=== PATIENT | male | born 1970 | race African-American/Black ===

== ENCOUNTER 2023-03-10 20:22 | Emergency (ER) | payer BC, OTHER, SELFPAY ==
[2023-03-10 20:38] VITALS: BP 128/80; PULSE 81; RESP 20; TEMP 37.1; O2SAT 98; BMI 25.7
--- NOTE | 2023-03-10 20:59 | CT_ITS ---
The [address] [address] Patient Name: RODOLFO ENGLISH MRN: [id number] date: 1970 Sex: M Assigned Patient Location: ER Current Patient Location: ER Accession/Order Number: [id number] Exam Date: 03/10/2023 21:29 Report Date: 03/10/2023 22:17 At the request of: KADI GUTIÉRREZ Procedure: CT head/brain wo con EXAM: CT head/brain wo con HISTORY: Dizziness. TECHNIQUE: Axial CT scans through the head were obtained without IV contrast administration. Dose reduction techniques were achieved by using: automated exposure control and/or adjustment of mA and /or kV according to patient size and/or use of iterative reconstruction technique. COMPARISON: None. FINDINGS: The cerebral hemispheres have normal white and merritt matter and corticomedullary differentiation. To the limit of CT, the posterior fossa appears unremarkable. The ventricular system and cortical sulci are normal for the patient's age. No area of abnormal mass-effect or edema or intracranial hemorrhage. The visualized orbits show no abnormal mass. The visualized paranasal sinuses show an air-fluid level in the right maxillary sinus. Mastoid air cells are clear. CT/CT head/brain wo con IMPRESSION: No acute intracranial process. An air-fluid level in the right maxillary sinus. In a proper clinical presentation, it may represent acute sinusitis. Electronically authenticated by: KATLYN TAMAYO Date: 03/10/2023 22:17
--- NOTE | 2023-03-10 20:59 | CT_ITS ---
The [address] [address] Patient Name: RODOLFO ENGLISH MRN: [id number] date: 1970 Sex: M Assigned Patient Location: ER Current Patient Location: ED.MAIN Accession/Order Number: [id number] Exam Date: 03/10/2023 21:29 Report Date: 03/10/2023 22:15 At the request of: KADI GUTIÉRREZ Procedure: CT abdomen pelvis wo con CT ABDOMEN/PELVIS WITHOUT IV CONTRAST. INDICATION: pain right flank COMPARISON: There are no other studies available for comparison. TECHNIQUE: Contiguous axial images were obtained from the lung bases to the pelvic floor without intravenous or oral contrast. Coronal and sagittal reformations are provided. FINDINGS: Somewhat limited evaluation due to motion artifact. LOWER LUNGS: Clear. LIVER/BILIARY TREE: No discrete lesion. No intrahepatic ductal dilatation. GALLBLADDER: No significant gallbladder wall thickening. No radiopaque stone. CBD: Normal CBD. SPLEEN: Normal in size. PANCREAS: No appreciable peripancreatic fluid. No pancreatic ductal dilatation. There are calcifications in the pancreatic tail.. ADRENALS: Normal. KIDNEYS: No hydronephrosis. No radiopaque calculus. STOMACH AND BOWEL: Stomach is unremarkable. No dilated bowel loops. No bowel wall thickening. Colonic diverticulosis. APPENDIX: Not well-visualized. PERITONEAL CAVITY: No fluid. No fat stranding. ABDOMINAL WALL: No subcutaneous stranding. No subcutaneous fluid collection. LYMPH NODES: No mesenteric or retroperitoneal lymphadenopathy by CT criteria. ABDOMINAL AORTA: No aneurysm. PELVIS: No acute abnormality. MUSCULOSKELETAL: No acute osseous abnormality. CT/CT abdomen pelvis wo con IMPRESSION: 1. No acute abnormality in the abdomen or pelvis. No obstructive uropathy. No nephrolithiasis. 2. Findings are suggestive of chronic pancreatitis. No evidence of acute pancreatitis. Correlate with serum lipase levels. Electronically authenticated by: KENTRELL DELANEY Date: 03/10/2023 22:15
--- NOTE | 2023-03-10 21:01 | ECG_ITS ---
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
[2023-03-10] MEDS: 0.9 % SODIUM CHLORIDE 1,000 ML 1000 ML IV (21:17)
[2023-03-10] MEDS: ONDANSETRON PF 4 MG/2 ML VIAL IV (21:17)
[2023-03-10 21:25] LABS: Basophils Absolute Auto 0.1 10^3/uL (0.0-0.1); Basophils Percent Auto 0.7 % (0.2-2.0); Eosinophils Absolute Auto 0.2 10^3/uL (0.0-0.7); Eosinophils Percent Auto 2.1 % (0.9-7.0); Hematocrit 43.2 % (42.0-54.0); Hemoglobin 14.2 g/dL (14.0-18.0); Immature Granulocytes Abs Auto 0.03 10^3/uL (0.00-0.03); Immature Granulocytes Pct Auto 0.4 % (0.0-0.5); Lymphocytes Absolute Auto 3.4 10^3/uL (1.2-3.8); Lymphocytes Percent Auto 46.1 % (20.5-60.0); Mean Corpuscular HGB Conc 32.9 g/dL (29.9-35.2); Mean Corpuscular Hemoglobin 25.7 pg (25.9-34.0); Mean Corpuscular Volume 78.1 fL (80.0-94.0); Monocytes Absolute Auto 0.9 10^3/uL (0.3-0.8); Monocytes Percent Auto 12.7 % (1.7-12.0); Neutrophils Absolute Auto 2.8 10^3/uL (1.4-6.5); Platelet Count 338 10^3/uL (150-450); Red Blood Count 5.53 10^6/uL (4.70-6.10); Red Cell Distribution Width 15.7 % (11.0-15.0); White Blood Count 7.3 10^3/uL (4.0-11.0)
[2023-03-10 21:26] LABS: Bilirubin Urine NEGATIVE (NEGATIVE); Blood Urine NEGATIVE (NEGATIVE); Clarity Urine CLEAR (CLEAR); Color Urine LT. YELLOW (YELLOW); Glucose Urine UA >=1000 mg/dL (NEGATIVE); Ketones Urine TRACE mg/dL (NEGATIVE); Leukocyte Esterase Urine NEGATIVE (NEGATIVE); Nitrite Urine NEGATIVE (NEGATIVE); Protein Urine NEGATIVE (NEG/TRACE); RBC Urine 0-2 #/HPF (0-2); Specific Gravity Urine 1.025 (1.005-1.025); Urobilinogen Urine 0.2 EU/dL (0.2-1.0); WBC Urine NONE SEEN #/HPF (NONE SEEN); pH Urine 5.5 (5.0-9.0)
[2023-03-10 21:27] LABS: Bacteria Urine NONE SEEN #/HPF (NONE SEEN); Cast Seen? NONE SEEN #/LPF (NONE SEEN); Crystals Seen? None Seen #/HPF (None Seen); Mucus Urine NONE SEEN (NONE SEEN); Squamous Epithelial Cell Urine RARE #/LPF (NONE/RARE); Urine Culture Indicated NO
--- NOTE | 2023-03-10 21:32 | ED.GENADUL1 ---
Documented by User: Magnolia Gutiérrez 03/10/23 21:42 HPI - General Adult General Chief complaint: Dizziness Stated complaint: Altered Mental Status Time Seen by Provider: 03/10/23 20:58 Source: patient Mode of arrival: ambulance Limitations: no limitations History of Present Illness HPI narrative: 52-year-old male Presents to the emergency room with a chief complaint of dizziness and right flank pain. Patient was at work and began having right flank pain with dizziness. He denies a known history of kidney stones. Patient was brought to emergency room by squad for the symptoms. Dizziness has subsided but he states he still feels somewhat nauseated and has right flank pain. Patient is alert and oriented. Vital signs are stable he is not currently febrile. He denies taking any medications other than his prescribed medications prior to arrival today. he states she's type II diabetic. Related Data Home Medications Medication Instructions Recorded Confirmed benztropine 1 mg tablet mg 03/10/23 empagliflozin 25 mg tablet mg 03/10/23 (Jardiance) escitalopram oxalate 20 mg tablet mg 03/10/23 metformin 1,000 mg tablet mg 03/10/23 prazosin 2 mg capsule mg 03/10/23 quetiapine 200 mg tablet mg 03/10/23 Previous Rx's Medication Instructions Recorded nabumetone 750 mg tablet 750 mg PO BID PRN flank pain #20 03/10/23 tabs Allergies Allergy/AdvReac Type Severity Reaction Status Date / Time No Known Drug Allergies Allergy Verified 03/10/23 20:38 Review of Systems ROS Narrative All Systems are negative except as noted/marked.All systems reviewed and otherwise negative PFSH PFSH Social History Smoking status: Heavy tobacco smoker Exam Narrative Exam Narrative: Nurses note and vital signs reviewed and patient is not hypoxic. General: The patient appears well and in no apparent distress. Patient is resting comfortably on cart. Skin: Warm, dry, no pallor noted. There is no rash noted. Head: Normocephalic, atraumatic Eye:No nystagmus, Normal conjunctiva, no drainage, EOMI. PERRL Ears, Nose, Mouth, and Throat: oral mucosa is moist. Nares patent. Mouth without vesicles. Ear canals patent. Tm's without Erythema Cardiovascular: Regular Rate and Rhythm Respiratory: Patient is in no distress, no accessory muscle use, lungs are clear to auscultation, no wheezing, rales or rhonchi Back: Nontender to palpation no flank pain on palpation, no CVA tenderness bilaterally to percussion. GI: Normal bowel sounds, no tenderness to palpation, no masses appreciated. No rebound, guarding, or rigidity noted. Musculoskeletal: The patient has no evidence of calf tenderness, no pitting edema, symmetrical pulses noted bilaterally Neurological: A&O x4, normal speech Psychiatric: Cooperative Constitutional Vital Signs, click to edit/add: Last Vital Signs Temp 98.7 F 03/10/23 20:38 Pulse 81 03/10/23 20:38 Resp 20 03/10/23 20:38 BP 128/80 03/10/23 20:38 Pulse Ox 98 03/10/23 20:38 O2 Del Method Room Air 03/10/23 21:22 Course Vital Signs Vital signs: Vital Signs Temperature 98.7 F 03/10/23 20:38 Pulse Rate 81 03/10/23 20:38 Respiratory Rate 20 03/10/23 20:38 Blood Pressure 128/80 03/10/23 20:38 Pulse Oximetry 98 03/10/23 20:38 Oxygen Delivery Method Room Air 03/10/23 20:38 Temperature 98.7 F 03/10/23 20:38 Pulse Rate 81 03/10/23 20:38 Respiratory Rate 20 03/10/23 20:38 Blood Pressure 128/80 03/10/23 20:38 Pulse Oximetry 98 03/10/23 20:38 Oxygen Delivery Method Room Air 03/10/23 21:22 Medical Decision Making Differential Diagnosis Differential Diagnosis: Flank pain, nephrolithiasis, dizziness Medical Records Medical records reviewed: Yes I reviewed the patient's medical records Lab Data Lab results reviewed: Yes I reviewed the patient's lab results Labs: Lab Results 03/10/23 03/10/23 Range/Units 21:10 21:15 WBC 7.3 (4.0-11.0) 10^3/uL RBC 5.53 (4.70-6.10) 10^6/uL Hgb 14.2 (14.0-18.0) g/dL Hct 43.2 (42.0-54.0) % MCV 78.1 L (80.0-94.0) fL MCH 25.7 L (25.9-34.0) pg MCHC 32.9 (29.9-35.2) g/dL RDW 15.7 H (11.0-15.0) % Plt Count 338 (150-450) 10^3/uL MPV 10.0 (9.5-13.5) fL Neut % (Auto) 38.0 L (43.0-75.0) % Lymph % (Auto) 46.1 (20.5-60.0) % Anderson % (Auto) 12.7 H (1.7-12.0) % Eos % (Auto) 2.1 (0.9-7.0) % Baso % (Auto) 0.7 (0.2-2.0) % Neut # (Auto) 2.8 (1.4-6.5) 10^3/uL Lymph # (Auto) 3.4 (1.2-3.8) 10^3/uL Anderson # (Auto) 0.9 H (0.3-0.8) 10^3/uL Eos # (Auto) 0.2 (0.0-0.7) 10^3/uL Baso # (Auto) 0.1 (0.0-0.1) 10^3/uL Abs Immat Gran (auto) 0.03 (0.00-0.03) 10^3/uL Imm/Tot Granulo (auto) 0.4 (0.0-0.5) % Sodium 140 (136-145) mmol/L Potassium 3.6 (3.5-5.1) mmol/L Chloride 104 (98-107) mmol/L Carbon Dioxide 24.3 (21.0-32.0) mmol/L Anion Gap 15.3 BUN 19.0 H (7.0-18.0) mg/dL Creatinine 0.89 (0.70-1.30) mg/dL Est GFR ( Amer) >60 (>=60) Est GFR (Non-Af Amer) >60 (>=60) BUN/Creatinine Ratio 21.3 Glucose 130 H (74-106) mg/dL Calcium 8.5 (8.5-10.1) mg/dL Total Bilirubin 0.3 (0.2-1.0) mg/dL AST 18 (15-37) U/L ALT 27 (16-63) U/L Alkaline Phosphatase 86 (46-116) U/L Total Protein 7.4 (6.4-8.2) g/dL Albumin 3.8 (3.4-5.0) g/dL Globulin 3.6 g/dL Albumin/Globulin Ratio 1.1 Urine Color Lt. yellow (YELLOW) Urine Clarity Clear (CLEAR) Urine pH 5.5 (5.0-9.0) Ur Specific [place] 1.025 (1.005-1.025) Urine Protein Negative (NEG/TRACE) mg/dL Urine Glucose (UA) >=1000 A (NEGATIVE) mg/dL Urine Ketones Trace A (NEGATIVE) mg/dL Urine Occult Blood Negative (NEGATIVE) Urine Nitrite Negative (NEGATIVE) Urine Bilirubin Negative (NEGATIVE) Urine Urobilinogen 0.2 (0.2-1.0) EU/dL Ur Leukocyte Esterase Negative (NEGATIVE) Urine RBC 0-2 (0-2) #/HPF Urine WBC None seen (NONE SEEN) #/HPF Ur Squamous Epith Cells Rare (NONE/RARE) #/LPF Urine Crystals None seen (None Seen) #/HPF Urine Bacteria None seen (NONE SEEN) #/HPF Urine Casts None seen (NONE SEEN) #/LPF Urine Mucus None seen (NONE SEEN) Ur Culture Indicated? No ECG Data Interpretation: 2108 Normal sinus rhythm with a rate of 71 bpm, TN interval 190 ms, QRS duration 96 ms, no ST elevation or depression, no STEMI Discharge Plan Discharge Chief Complaint: Dizziness Clinical Impression: Acute flank pain, Dizziness Patient Disposition: Home, Self-Care Time of Disposition Decision: 22:37 Prescriptions / Home Meds: New nabumetone 750 mg tablet 750 mg PO BID PRN (Reason: flank pain) Qty: 20 0RF No Action quetiapine 200 mg tablet metformin 1,000 mg tablet benztropine 1 mg tablet prazosin 2 mg capsule escitalopram oxalate 20 mg tablet Jardiance 25 mg tablet Instructions: Dizziness (ED), Flank Pain (ED) Stand Alone Forms: Portal Instructions Referrals: Physician,Non-Staff, MD [Primary Care Provider] - 1 week Documented by User: Scooter Hardin 03/10/23 22:38 HPI - General Adult General Chief complaint: Dizziness Stated complaint: Altered Mental Status Time Seen by Provider: 03/10/23 20:58 Related Data Home Medications Medication Instructions Recorded Confirmed benztropine 1 mg tablet mg 03/10/23 empagliflozin 25 mg tablet mg 03/10/23 (Jardiance) escitalopram oxalate 20 mg tablet mg 03/10/23 metformin 1,000 mg tablet mg 03/10/23 prazosin 2 mg capsule mg 03/10/23 quetiapine 200 mg tablet mg 03/10/23 Previous Rx's Medication Instructions Recorded nabumetone 750 mg tablet 750 mg PO BID PRN flank pain #20 03/10/23 tabs Allergies Allergy/AdvReac Type Severity Reaction Status Date / Time No Known Drug Allergies Allergy Verified 03/10/23 20:38 PFSH PFSH Social History Smoking status: Heavy tobacco smoker Exam Constitutional Vital Signs, click to edit/add: Last Vital Signs Temp 98.7 F 03/10/23 20:38 Pulse 81 03/10/23 20:38 Resp 20 03/10/23 20:38 BP 128/80 03/10/23 20:38 Pulse Ox 98 03/10/23 20:38 O2 Del Method Room Air 03/10/23 21:22 Course Vital Signs Vital signs: Vital Signs Temperature 98.7 F 03/10/23 20:38 Pulse Rate 81 03/10/23 20:38 Respiratory Rate 20 03/10/23 20:38 Blood Pressure 128/80 03/10/23 20:38 Pulse Oximetry 98 03/10/23 20:38 Oxygen Delivery Method Room Air 03/10/23 20:38 Temperature 98.7 F 03/10/23 20:38 Pulse Rate 81 03/10/23 20:38 Respiratory Rate 20 03/10/23 20:38 Blood Pressure 128/80 03/10/23 20:38 Pulse Oximetry 98 03/10/23 20:38 Oxygen Delivery Method Room Air 03/10/23 21:22 Medical Decision Making MDM Narrative Medical decision making narrative: Patient was placed on ekg monitor tech and EKG obtained. Blood drawn and sent for evaluation. patient was sent for CT scanning of the brain as well as CT scanning of the abdomen and pelvis. Urine was also obtained and sent for testing. CAT scan of the head was unremarkable. UA negative for acute infection. CBC normal. CMP notable for slight increase in BUN. CT of the abdomen pelvis did not show any obstructive uropathy. The patient does have findings consistent with chronic pancreatitis but no acute abnormalities were noted. She was informed of results and discharged home with prescription for NSAID recommendation see his primary care physician for follow-up. Emergency Department return if he worsens. Lab Data Labs: Lab Results 03/10/23 03/10/23 Range/Units 21:10 21:15 WBC 7.3 (4.0-11.0) 10^3/uL RBC 5.53 (4.70-6.10) 10^6/uL Hgb 14.2 (14.0-18.0) g/dL Hct 43.2 (42.0-54.0) % MCV 78.1 L (80.0-94.0) fL MCH 25.7 L (25.9-34.0) pg MCHC 32.9 (29.9-35.2) g/dL RDW 15.7 H (11.0-15.0) % Plt Count 338 (150-450) 10^3/uL MPV 10.0 (9.5-13.5) fL Neut % (Auto) 38.0 L (43.0-75.0) % Lymph % (Auto) 46.1 (20.5-60.0) % Anderson % (Auto) 12.7 H (1.7-12.0) % Eos % (Auto) 2.1 (0.9-7.0) % Baso % (Auto) 0.7 (0.2-2.0) % Neut # (Auto) 2.8 (1.4-6.5) 10^3/uL Lymph # (Auto) 3.4 (1.2-3.8) 10^3/uL Anderson # (Auto) 0.9 H (0.3-0.8) 10^3/uL Eos # (Auto) 0.2 (0.0-0.7) 10^3/uL Baso # (Auto) 0.1 (0.0-0.1) 10^3/uL Abs Immat Gran (auto) 0.03 (0.00-0.03) 10^3/uL Imm/Tot Granulo (auto) 0.4 (0.0-0.5) % Sodium 140 (136-145) mmol/L Potassium 3.6 (3.5-5.1) mmol/L Chloride 104 (98-107) mmol/L Carbon Dioxide 24.3 (21.0-32.0) mmol/L Anion Gap 15.3 BUN 19.0 H (7.0-18.0) mg/dL Creatinine 0.89 (0.70-1.30) mg/dL Est GFR ( Amer) >60 (>=60) Est GFR (Non-Af Amer) >60 (>=60) BUN/Creatinine Ratio 21.3 Glucose 130 H (74-106) mg/dL Calcium 8.5 (8.5-10.1) mg/dL Total Bilirubin 0.3 (0.2-1.0) mg/dL AST 18 (15-37) U/L ALT 27 (16-63) U/L Alkaline Phosphatase 86 (46-116) U/L Total Protein 7.4 (6.4-8.2) g/dL Albumin 3.8 (3.4-5.0) g/dL Globulin 3.6 g/dL Albumin/Globulin Ratio 1.1 Urine Color Lt. yellow (YELLOW) Urine Clarity Clear (CLEAR) Urine pH 5.5 (5.0-9.0) Ur Specific [place] 1.025 (1.005-1.025) Urine Protein Negative (NEG/TRACE) mg/dL Urine Glucose (UA) >=1000 A (NEGATIVE) mg/dL Urine Ketones Trace A (NEGATIVE) mg/dL Urine Occult Blood Negative (NEGATIVE) Urine Nitrite Negative (NEGATIVE) Urine Bilirubin Negative (NEGATIVE) Urine Urobilinogen 0.2 (0.2-1.0) EU/dL Ur Leukocyte Esterase Negative (NEGATIVE) Urine RBC 0-2 (0-2) #/HPF Urine WBC None seen (NONE SEEN) #/HPF Ur Squamous Epith Cells Rare (NONE/RARE) #/LPF Urine Crystals None seen (None Seen) #/HPF Urine Bacteria None seen (NONE SEEN) #/HPF Urine Casts None seen (NONE SEEN) #/LPF Urine Mucus None seen (NONE SEEN) Ur Culture Indicated? No Imaging Data CT scan - head: Radiologist's impression: The [place] [id number] Patient Name: RODOLFO ENGLISH MRN: [id number] date: 1970 Sex: M Assigned Patient Location: ER Current Patient Location: ER Accession/Order Number: [id number] Exam Date: 03/10/2023 21:29 Report Date: 03/10/2023 22:17 At the request of: MAGNOLIA GUTIÉRREZ Procedure: CT head/brain wo con EXAM: CT head/brain wo con HISTORY: Dizziness. TECHNIQUE: Axial CT scans through the head were obtained without IV contrast administration. Dose reduction techniques were achieved by using: automated exposure control and/or adjustment of mA and /or kV according to patient size and/or use of iterative reconstruction technique. COMPARISON: None. FINDINGS: The cerebral hemispheres have normal white and merritt matter and corticomedullary differentiation. To the limit of CT, the posterior fossa appears unremarkable. The ventricular system and cortical sulci are normal for the patient's age. No area of abnormal mass-effect or edema or intracranial hemorrhage. The visualized orbits show no abnormal mass. The visualized paranasal sinuses show an air-fluid level in the right maxillary sinus. Mastoid air cells are clear. IMPRESSION: No acute intracranial process. An air-fluid level in the right maxillary sinus. In a proper clinical presentation, it may represent acute sinusitis. Electronically authenticated by: KATLYN TAMAYO Date: 03/10/2023 22:17 CT scan - abdomen: Radiologist's impression: Patient Name: RODOLFO ENGLISH MRN: [facility]:[id number] date: 1970 Sex: M Assigned Patient Location: ER Current Patient Location: ED.MAIN Accession/Order Number: [id number] Exam Date: 03/10/2023 21:29 Report Date: 03/10/2023 22:15 At the request of: MAGNOLIA GUTIÉRREZ Procedure: CT abdomen pelvis wo con CT ABDOMEN/PELVIS WITHOUT IV CONTRAST. INDICATION: pain right flank COMPARISON: There are no other studies available for comparison. TECHNIQUE: Contiguous axial images were obtained from the lung bases to the pelvic floor without intravenous or oral contrast. Coronal and sagittal reformations are provided. FINDINGS: Somewhat limited evaluation due to motion artifact. LOWER LUNGS: Clear. LIVER/BILIARY TREE: No discrete lesion. No intrahepatic ductal dilatation. GALLBLADDER: No significant gallbladder wall thickening. No radiopaque stone. CBD: Normal CBD. SPLEEN: Normal in size. PANCREAS: No appreciable peripancreatic fluid. No pancreatic ductal dilatation. There are calcifications in the pancreatic tail.. ADRENALS: Normal. KIDNEYS: No hydronephrosis. No radiopaque calculus. STOMACH AND BOWEL: Stomach is unremarkable. No dilated bowel loops. No bowel wall thickening. Colonic diverticulosis. APPENDIX: Not well-visualized. PERITONEAL CAVITY: No fluid. No fat stranding. ABDOMINAL WALL: No subcutaneous stranding. No subcutaneous fluid collection. LYMPH NODES: No mesenteric or retroperitoneal lymphadenopathy by CT criteria. ABDOMINAL AORTA: No aneurysm. PELVIS: No acute abnormality. MUSCULOSKELETAL: No acute osseous abnormality. IMPRESSION: 1. No acute abnormality in the abdomen or pelvis. No obstructive uropathy. No nephrolithiasis. 2. Findings are suggestive of chronic pancreatitis. No evidence of acute pancreatitis. Correlate with serum lipase levels. Electronically authenticated by: KENTRELL DELANEY Date: 03/10/2023 22:15 Discharge Plan Discharge Chief Complaint: Dizziness Clinical Impression: Acute flank pain, Dizziness Patient Disposition: Home, Self-Care Time of Disposition Decision: 22:37 Prescriptions / Home Meds: New nabumetone 750 mg tablet 750 mg PO BID PRN (Reason: flank pain) Qty: 20 0RF No Action quetiapine 200 mg tablet metformin 1,000 mg tablet benztropine 1 mg tablet prazosin 2 mg capsule escitalopram oxalate 20 mg tablet Jardiance 25 mg tablet Instructions: Dizziness (ED), Flank Pain (ED) Stand Alone Forms: Portal Instructions Referrals: Physician,Non-Staff, MD [Primary Care Provider] - 1 week
[2023-03-10 21:41] LABS: Alanine Aminotransferase 27 U/L (16-63); Albumin Globulin Ratio 1.1; Albumin Level 3.8 g/dL (3.4-5.0); Alkaline Phosphatase 86 U/L (46-116); Anion Gap 15.3; Aspartate Amino Transferase 18 U/L (15-37); BUN Creatinine Ratio 21.3; Bilirubin Total 0.3 mg/dL (0.2-1.0); Calcium 8.5 mg/dL (8.5-10.1); Carbon Dioxide 24.3 mmol/L (21.0-32.0); Chloride 104 mmol/L (98-107); Estimated GFR (African America >60 (>=60); Estimated GFR (Non-African Ame >60 (>=60); Globulin 3.6 g/dL; Glucose 130 mg/dL (74-106); Potassium 3.6 mmol/L (3.5-5.1); Sodium 140 mmol/L (136-145); Total Protein 7.4 g/dL (6.4-8.2)
== END 2023-03-10 23:00 | disposition home or self-care (01) ==
PROVIDERS: Physician Assistant; Emergency Provider Emergency Medicine
DX: R42 Dizziness and giddiness (principal); R10.9 Unspecified abdominal pain; Z79.84 Long term (current) use of oral hypoglycemic drugs; Z79.899 Other long term (current) drug therapy; F17.210 Nicotine dependence, cigarettes, uncomplicated
CPT/HCPCS: 36415; 70450; 74176; 80053; 81001; 85025; 93005; 96361; 96374; 99285

== ENCOUNTER 2023-10-16 05:06 | Emergency (ER) | payer OTHER, SELFPAY ==
[2023-10-16 05:11] VITALS: BP 153/96; PULSE 113; TEMP 36.4; O2SAT 99; BMI 22.8
--- NOTE | 2023-10-16 05:16 | ECG_ITS ---
The [facility] Test Date: 2023-10-16 Pat Name: RODOLFO ENGLISH Department: Room: - Gender: Male [employer]ician: : 1970 Requested By: Order Number: [id number] Reading MD: ERNIE HALE Measurements Intervals [place] Rate: 102 P: 77 [place]: 192 QRS: 62 QRSD: 90 T: 47 QT: 344 QTc: 403 Interpretive Statements 1120 Sinus tachycardia 9140 abnormal rhythm ECG Compared to ECG 03/10/2023 21:09:24 Sinus rhythm no longer present Electronically Signed On 10-16-2023 7:00:33 EDT by ERNIE HALE
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
[2023-10-16 05:55] LABS: Basophils Percent Auto 0.5 % (0.2-2.0); Hemoglobin 14.6 g/dL (14.0-18.0); Immature Granulocytes Abs Auto 0.01 10^3/uL (0.00-0.03); Immature Granulocytes Pct Auto 0.1 % (0.0-0.5); Lymphocytes Absolute Auto 4.1 10^3/uL (1.2-3.8); Lymphocytes Percent Auto 46.8 % (20.5-60.0); Mean Corpuscular HGB Conc 32.4 g/dL (29.9-35.2); Mean Corpuscular Hemoglobin 27.4 pg (25.9-34.0); Mean Corpuscular Volume 84.4 fL (80.0-94.0); Mean Platelet Volume 9.6 fL (9.5-13.5); Monocytes Absolute Auto 0.7 10^3/uL (0.3-0.8); Monocytes Percent Auto 8.4 % (1.7-12.0); Neutrophils Absolute Auto 3.9 10^3/uL (1.4-6.5); Neutrophils Percent Auto 44.2 % (43.0-75.0); Platelet Count 345 10^3/uL (150-450); Red Blood Count 5.33 10^6/uL (4.70-6.10); Red Cell Distribution Width 15.5 % (11.0-15.0); White Blood Count 8.7 10^3/uL (4.0-11.0)
[2023-10-16] MEDS: ZIPRASIDONE MESYLATE 20 MG, WATER FOR INJECTION,STERILE 1.2 ML IM (06:00)
[2023-10-16 06:07] LABS: Cannabinoid Screen Urine POSITIVE (NEGATIVE)
[2023-10-16 06:08] LABS: Amphetamine Screen Urine NEGATIVE (NEGATIVE); Barbiturates Screen Urine NEGATIVE (NEGATIVE); Benzodiazepines Screen Urine NEGATIVE (NEGATIVE); Buprenorphine Screen Urine NEGATIVE (NEGATIVE); Cocaine Screen Urine POSITIVE (NEGATIVE); Methadone Screen Urine NEGATIVE (NEGATIVE); Methamphetamines Screen Urine POSITIVE (NEGATIVE); Opiate Screen Urine NEGATIVE (NEGATIVE); Oxycodone Screen Urine NEGATIVE (NEGATIVE); Phencyclidine Screen Urine NEGATIVE (NEGATIVE); Tricyclic Antidepressant Urine NEGATIVE (NEGATIVE)
[2023-10-16 06:08] LABS: Acetaminophen 7.5 ug/mL (10.0-30.0); Salicylate 4.4 mg/dL (<=19.9)
[2023-10-16 06:10] LABS: Alanine Aminotransferase 39 U/L (16-63); Albumin Globulin Ratio 1.2; Albumin Level 4.4 g/dL (3.4-5.0); Alkaline Phosphatase 99 U/L (46-116); Anion Gap 19.6; Aspartate Amino Transferase 39 U/L (15-37); BUN Creatinine Ratio 8.1; Bilirubin Total 0.3 mg/dL (0.2-1.0); Calcium 9.4 mg/dL (8.5-10.1); Carbon Dioxide 22.1 mmol/L (21.0-32.0); Chloride 102 mmol/L (98-107); Estimated GFR (African America >60 (>=60); Estimated GFR (Non-African Ame >60 (>=60); Ethanol 225 mg/dL; Globulin 3.8 g/dL; Glucose 106 mg/dL (74-106); Potassium 3.7 mmol/L (3.5-5.1); Sodium 140 mmol/L (136-145); Total Protein 8.2 g/dL (6.4-8.2)
[2023-10-16 12:06] LABS: Ethanol 115 mg/dL
[2023-10-16 14:18] VITALS: BP 140/86; PULSE 82; O2SAT 99
[2023-10-16 14:34] LABS: Ethanol 53 mg/dL
--- NOTE | 2023-10-16 14:59 | ED.PSYCH1 ---
HPI - Psych General Chief Complaint: Psychiatric Symptoms Stated Complaint: SUICIDAL IDEATIONS Time Seen by Provider: 10/16/23 05:16 Source: Reports patient and law enforcement Mode of arrival: ambulance History of Present Illness HPI Narrative: The patient was initially seen by Dr. Yo and signed out to me after discussing the case with her thoroughly. Please see her full history and physical. Related Data Home Medications ?Medication ?Instructions ?Recorded ?Confirmed benztropine 1 mg tablet mg 03/10/23 empagliflozin 25 mg tablet mg 03/10/23 (Jardiance) escitalopram oxalate 20 mg tablet mg 03/10/23 metformin 1,000 mg tablet mg 03/10/23 prazosin 2 mg capsule mg 03/10/23 quetiapine 200 mg tablet mg 03/10/23 Previous Rx's ?Medication ?Instructions ?Recorded nabumetone 750 mg tablet 750 mg PO BID PRN flank pain #20 03/10/23 tabs Allergies Allergy/AdvReac Type Severity Reaction Status Date / Time No Known Drug Allergies Allergy Verified 03/10/23 20:38 PFSH PFSH Social History Smoking status: Heavy tobacco smoker Exam Constitutional Vital Signs, click to edit/add: Last Vital Signs Temp 97.6 F 10/16/23 05:11 Pulse 82 10/16/23 14:18 Resp 20 10/16/23 14:18 BP 140/86 10/16/23 14:18 Pulse Ox 99 10/16/23 14:18 O2 Del Method Room Air 10/16/23 14:18 Course Vital Signs Vital signs: Vital Signs Temperature 97.6 F 10/16/23 05:11 Pulse Rate 113 H 10/16/23 05:11 Respiratory Rate 18 10/16/23 05:11 Blood Pressure 153/96 H 10/16/23 05:11 Pulse Oximetry 99 10/16/23 05:11 Oxygen Delivery Method Room Air 10/16/23 05:11 Temperature 97.6 F 10/16/23 05:11 Pulse Rate 82 10/16/23 14:18 Respiratory Rate 20 10/16/23 14:18 Blood Pressure 140/86 10/16/23 14:18 Pulse Oximetry 99 10/16/23 14:18 Oxygen Delivery Method Room Air 10/16/23 14:18 MDM - Psych MDM Narrative Medical decision making narrative: The patient was found to be intoxicated with alcohol but has been observed here and the alcohol level has come down appropriately. He is medically cleared and pink slip has been filled out by Dr. Yo. He is being transferred to [facility]. Treatment diagnosis and disposition were discussed with the patient Differential Diagnosis Differential diagnosis: Likely suicidal ideation, depression and drug-induced psychotic disorder Lab Data Attestation: I reviewed the patient's lab results. Labs: Lab Results 10/16/23 10/16/23 10/16/23 Range/Units 05:30 05:46 11:40 WBC 8.7 (4.0-11.0) 10^3/uL RBC 5.33 (4.70-6.10) 10^6/uL Hgb 14.6 (14.0-18.0) g/dL Hct 45.0 (42.0-54.0) % MCV 84.4 (80.0-94.0) fL MCH 27.4 (25.9-34.0) pg MCHC 32.4 (29.9-35.2) g/dL RDW 15.5 H (11.0-15.0) % Plt Count 345 (150-450) 10^3/uL MPV 9.6 (9.5-13.5) fL Neut % (Auto) 44.2 (43.0-75.0) % Lymph % (Auto) 46.8 (20.5-60.0) % [place] % (Auto) 8.4 (1.7-12.0) % Eos % (Auto) 0.0 L (0.9-7.0) % Baso % (Auto) 0.5 (0.2-2.0) % Neut # (Auto) 3.9 (1.4-6.5) 10^3/uL Lymph # (Auto) 4.1 H (1.2-3.8) 10^3/uL [place] # (Auto) 0.7 (0.3-0.8) 10^3/uL Eos # (Auto) 0.0 (0.0-0.7) 10^3/uL Baso # (Auto) 0.0 (0.0-0.1) 10^3/uL Abs Immat Gran (auto) 0.01 (0.00-0.03) 10^3/uL Imm/Tot Granulo (auto) 0.1 (0.0-0.5) % Sodium 140 (136-145) mmol/L Potassium 3.7 (3.5-5.1) mmol/L Chloride 102 (98-107) mmol/L Carbon Dioxide 22.1 (21.0-32.0) mmol/L Anion Gap 19.6 BUN 8.0 (7.0-18.0) mg/dL Creatinine 0.99 (0.70-1.30) mg/dL Est GFR ( Amer) >60 (>=60) Est GFR (Non-Af Amer) >60 (>=60) BUN/Creatinine Ratio 8.1 Glucose 106 (74-106) mg/dL Calcium 9.4 (8.5-10.1) mg/dL Total Bilirubin 0.3 (0.2-1.0) mg/dL AST 39 H (15-37) U/L ALT 39 (16-63) U/L Alkaline Phosphatase 99 (46-116) U/L Total Protein 8.2 (6.4-8.2) g/dL Albumin 4.4 (3.4-5.0) g/dL Globulin 3.8 g/dL Albumin/Globulin Ratio 1.2 Salicylates 4.4 (<=19.9) mg/dL Urine Opiates Screen Negative (NEGATIVE) Ur Buprenorphine Scrn Negative (NEGATIVE) Ur Oxycodone Screen Negative (NEGATIVE) Urine Methadone Screen Negative (NEGATIVE) Acetaminophen 7.5 L (10.0-30.0) ug/mL Ur Barbiturates Screen Negative (NEGATIVE) U Tricyclic Antidepress Negative (NEGATIVE) Ur Phencyclidine Scrn Negative (NEGATIVE) Ur Amphetamines Screen Negative (NEGATIVE) U Methamphetamines Scrn Positive A (NEGATIVE) U Benzodiazepines Scrn Negative (NEGATIVE) Urine Cocaine Screen Positive A (NEGATIVE) U Cannabinoids Screen Positive A (NEGATIVE) Ethanol Quant 225 115 mg/dL 10/16/23 Range/Units 14:17 WBC (4.0-11.0) 10^3/uL RBC (4.70-6.10) 10^6/uL Hgb (14.0-18.0) g/dL Hct (42.0-54.0) % MCV (80.0-94.0) fL MCH (25.9-34.0) pg MCHC (29.9-35.2) g/dL RDW (11.0-15.0) % Plt Count (150-450) 10^3/uL MPV (9.5-13.5) fL Neut % (Auto) (43.0-75.0) % Lymph % (Auto) (20.5-60.0) % [place] % (Auto) (1.7-12.0) % Eos % (Auto) (0.9-7.0) % Baso % (Auto) (0.2-2.0) % Neut # (Auto) (1.4-6.5) 10^3/uL Lymph # (Auto) (1.2-3.8) 10^3/uL [place] # (Auto) (0.3-0.8) 10^3/uL Eos # (Auto) (0.0-0.7) 10^3/uL Baso # (Auto) (0.0-0.1) 10^3/uL Abs Immat Gran (auto) (0.00-0.03) 10^3/uL Imm/Tot Granulo (auto) (0.0-0.5) % Sodium (136-145) mmol/L Potassium (3.5-5.1) mmol/L Chloride (98-107) mmol/L Carbon Dioxide (21.0-32.0) mmol/L Anion Gap BUN (7.0-18.0) mg/dL Creatinine (0.70-1.30) mg/dL Est GFR ( Amer) (>=60) Est GFR (Non-Af Amer) (>=60) BUN/Creatinine Ratio Glucose (74-106) mg/dL Calcium (8.5-10.1) mg/dL Total Bilirubin (0.2-1.0) mg/dL AST (15-37) U/L ALT (16-63) U/L Alkaline Phosphatase (46-116) U/L Total Protein (6.4-8.2) g/dL Albumin (3.4-5.0) g/dL Globulin g/dL Albumin/Globulin Ratio Salicylates (<=19.9) mg/dL Urine Opiates Screen (NEGATIVE) Ur Buprenorphine Scrn (NEGATIVE) Ur Oxycodone Screen (NEGATIVE) Urine Methadone Screen (NEGATIVE) Acetaminophen (10.0-30.0) ug/mL Ur Barbiturates Screen (NEGATIVE) U Tricyclic Antidepress (NEGATIVE) Ur Phencyclidine Scrn (NEGATIVE) Ur Amphetamines Screen (NEGATIVE) U Methamphetamines Scrn (NEGATIVE) U Benzodiazepines Scrn (NEGATIVE) Urine Cocaine Screen (NEGATIVE) U Cannabinoids Screen (NEGATIVE) Ethanol Quant 53 mg/dL Discharge Plan Discharge Chief Complaint: Psychiatric Symptoms Clinical Impression: Major depression, Alcohol intoxication, Polysubstance abuse Patient Disposition: [facility] Time of Disposition Decision: 14:46 Discharge Location: [facility] Condition: Good Mode of Transportation: Mental Health Car
== END 2023-10-16 15:12 ==
PROVIDERS: Emergency Medicine; Emergency Provider Emergency Medicine
DX: F10.129 Alcohol abuse with intoxication, unspecified (principal); Y90.7 Blood alcohol level of 200-239 mg/100 ml; F32.9 Major depressive disorder, single episode, unspecified; F19.10 Other psychoactive substance abuse, uncomplicated; F17.210 Nicotine dependence, cigarettes, uncomplicated; Z79.899 Other long term (current) drug therapy; Z79.84 Long term (current) use of oral hypoglycemic drugs
CPT/HCPCS: 36415; 80053; 80179; 80307; 80320; 80329; 85025; 93005; 96372; 99285

== ENCOUNTER 2024-01-08 16:12 | Inpatient (IN) | payer BC, SELFPAY ==
[2024-01-08] VITALS (23 sets, daily range): BP systolic 108–144; BP diastolic 55–88; PULSE 69–85; TEMP 36.2–36.8; O2SAT 98–100; BMI 19.9; BMI 21.0
--- NOTE | 2024-01-08 16:28 | ECG_ITS ---
[facility] Test Date: 2024-01-08 Pat Name: RODOLFO ENGLISH Department: Room: - Gender: Male Band Splicer: : 1970 Requested By: Order Number: [id number] Reading MD: ERNIE HALE Measurements Intervals [place] Rate: 82 P: 82 VA: 198 QRS: 79 QRSD: 98 T: 49 QT: 440 QTc: 479 Interpretive Statements 1100 Sinus rhythm 6120 Possible right atrial enlargement 8304 Long QTc interval 9150 abnormal ECG Compared to ECG 10/16/2023 05:23:24 Sinus tachycardia no longer present Electronically Signed On 01-08-2024 23:06:42 EDT by ERNIE HALE
--- NOTE | 2024-01-08 16:29 | ED_ITS ---
HPI HPI - General Adult General Chief complaint: Nausea/Vomiting/Diarrhea Stated complaint: GENERAL WEAKNESS Time Seen by Provider: 01/08/24 16:28 Source: patient Mode of arrival: walk-in History of Present Illness HPI narrative: Patient is a 53-year-old male with a history of diabetes who presents to the emergency department for 6-day history of vomiting, diarrhea and diffuse abdominal pain. He states he has had a 15 pound weight loss. He does not complain of chest pain or shortness of breath until he is directly asked but states he has had intermittent chest pain over the last 3 to 4 days. He has had no fevers. He has had mild cough. He denies blood in his stool. No sick contacts in the home. No medications taken prior to arrival. He states he has not checked his blood sugars in the last 6 days because he is too weak. He was able to provide both a stool specimen and urine specimen immediately upon arrival to the emergency department. Related Data Home Medications ?Medication ?Instructions ?Recorded ?Confirmed benztropine 1 mg tablet 1 mg PO DAILY 03/10/23 01/08/24 escitalopram oxalate 20 mg tablet 20 mg PO DAILY 03/10/23 01/08/24 cholecalciferol (vitamin D3) 25 25 mcg PO DAILY 01/08/24 01/08/24 mcg (1,000 unit) tablet quetiapine 100 mg tablet 100 mg PO QPM 01/08/24 01/08/24 trazodone 50 mg tablet 50 mg PO QPM 01/08/24 01/08/24 Allergies Allergy/AdvReac Type Severity Reaction Status Date / Time No Known Drug Allergies Allergy Verified 03/10/23 20:38 Opioid HPI Opioid Management Most Recent Opioid Data: Ur Phencyclidine Scrn Negative (NEGATIVE) 10/16/23 05:30 Review of Systems ROS Constitutional Denies: fever or chills Ears, nose, mouth, and throat Denies: throat pain or nasal congestion Cardiovascular Reports: chest pain Respiratory Reports: shortness of breath and cough Gastrointestinal Reports: abdominal pain, nausea, vomiting and diarrhea Genitourinary Reports: decreased urine ouput; Denies: painful urination Musculoskeletal Denies: back pain Integumentary/Breast Denies: rash Neurological Denies: headache Hematologic/Lymphatic Denies: easy bruising or easy bleeding PFSH PFSH Social History Smoking status: Heavy tobacco smoker Exam Narrative Exam Narrative: Gen.: Awake, alert, in no distress Head: Normocephalic, atraumatic ENT: Moist mucous membranes Respiratory: No respiratory distress, lungs clear bilaterally Cardio: Regular rate and rhythm Gastrointestinal: Abdomen is soft, Diffusely minimally tender to palpation in the epigastrium and umbilicus, no guarding or rebound Extremities: Moves extremities equally Psych: Normal mood and affect Neuro: No focal neuro deficit Skin: Warm, dry, intact Constitutional Vital Signs, click to edit/add: Last Vital Signs Temp 97.5 F L 01/08/24 16:17 Pulse 79 01/08/24 17:53 Resp 16 01/08/24 17:53 BP 119/59 01/08/24 17:53 Pulse Ox 98 01/08/24 16:17 O2 Del Method Room Air 01/08/24 16:17 Course Vital Signs Vital signs: Vital Signs Temperature 97.5 F L 01/08/24 16:17 Pulse Rate 84 01/08/24 16:17 Respiratory Rate 16 01/08/24 16:17 Blood Pressure 108/88 01/08/24 16:17 Pulse Oximetry 98 01/08/24 16:17 Oxygen Delivery Method Room Air 01/08/24 16:17 Temperature 97.5 F L 01/08/24 16:17 Pulse Rate 79 01/08/24 17:53 Respiratory Rate 16 01/08/24 17:53 Blood Pressure 119/59 01/08/24 17:53 Pulse Oximetry 98 01/08/24 16:17 Oxygen Delivery Method Room Air 01/08/24 16:17 Medical Decision Making [facility] Narrative Medical decision making narrative: Patient treated with IV fluids, Zofran and Levsin. He did provide a stool specimen so stool cultures are pending at this time. He was found to have stable vital signs, no EKG changes and normal troponin. Chest x-ray is unremarkable and CT shows the patient has circumferential wall thickening of the distal and terminal ileum. We will avoid antibiotics at this time until we have stool cultures resulted. Patient was found to have a sodium of 122. The remainder of his labs are grossly unremarkable although his lactic acid is elevated. He was admitted for IV fluids, kept n.p.o. at this time. Patient agreeable to treatment plan. SUPERVISED APC VISIT, PHYSICIAN ATTESTATION: Based on the medical record the care appears appropriate. ? Medical Records Medical records reviewed: Yes I reviewed the patient's medical records Lab Data Lab results reviewed: Yes I reviewed the patient's lab results Labs: Lab Results 01/08/24 01/08/24 Range/Units 16:27 16:44 WBC 12.5 H (4.0-11.0) 10^3/uL RBC 6.01 (4.70-6.10) 10^6/uL Hgb 16.9 (14.0-18.0) g/dL Hct 47.3 (42.0-54.0) % MCV 78.7 L (80.0-94.0) fL MCH 28.1 (25.9-34.0) pg MCHC 35.7 H (29.9-35.2) g/dL RDW 13.2 (11.0-15.0) % Plt Count 468 H (150-450) 10^3/uL MPV 10.7 (9.5-13.5) fL Seg Neuts % (Manual) 60.0 Band Neutrophils % 4.0 (0-5) % Lymphocytes % (Manual) 15.0 L (20.5-60.0) % Monocytes % (Manual) 21.0 H (1.7-12.0) % Eosinophils % (Manual) 0.0 L (0.9-7.0) % Basophils % (Manual) 0.0 L (0.2-2.0) % Neutrophils # (Manual) 7.50 H (1.4-6.5) 10^3/uL Band Neutrophils # 0.5 H (0.0-0.3) 10^3/uL Lymphocytes # (Manual) 1.87 (1.20-3.80) 10^3/uL Monocytes # (Manual) 2.62 H (0.30-0.80) 10^3/uL Eosinophils # (Manual) 0.00 (0.00-0.70) 10^3/uL Basophils # (Manual) 0.00 (0.00-0.10) 10^3/uL PT 10.9 (9.0-11.6) sec INR 1.03 Sodium 122 L* (136-145) mmol/L Potassium 3.9 (3.5-5.1) mmol/L Chloride 86 L (98-107) mmol/L Carbon Dioxide 21.2 (21.0-32.0) mmol/L Anion Gap 18.7 BUN 34.0 H (7.0-18.0) mg/dL Creatinine 1.34 H (0.70-1.30) mg/dL Est GFR ( Amer) >60 (>=60) Est GFR (Non-Af Amer) 56 L (>=60) BUN/Creatinine Ratio 25.4 Glucose 175 H (74-106) mg/dL Lactate 3.4 H* (0.4-2.0) mmol/L Calcium 9.5 (8.5-10.1) mg/dL Total Bilirubin 0.5 (0.2-1.0) mg/dL AST 17 (15-37) U/L ALT 30 (16-63) U/L Alkaline Phosphatase 107 (46-116) U/L Troponin I High Sens <4.0 L (4.0-76.1) pg/mL Total Protein 8.4 H (6.4-8.2) g/dL Albumin 3.2 L (3.4-5.0) g/dL Globulin 5.2 g/dL Albumin/Globulin Ratio 0.6 Lipase 201.0 H (16.0-77.0) U/L Urine Color Yellow (YELLOW) Urine Clarity Clear (CLEAR) Urine pH 6.0 (5.0-9.0) Ur Specific [place] 1.025 (1.005-1.025) Urine Protein 30 A (NEG/TRACE) mg/dL Urine Glucose (UA) Negative (NEGATIVE) mg/dL Urine Ketones Trace A (NEGATIVE) mg/dL Urine Occult Blood Negative (NEGATIVE) Urine Nitrite Negative (NEGATIVE) Urine Bilirubin Negative (NEGATIVE) Urine Urobilinogen 0.2 (0.2-1.0) EU/dL Ur Leukocyte Esterase Negative (NEGATIVE) Urine RBC None seen (0-2) #/HPF Urine WBC 0-2 A (NONE SEEN) #/HPF Ur Squamous Epith Cells Few A (NONE/RARE) #/LPF Ur Transition Epith Cell Rare A (NONE SEEN) #/LPF Urine Crystals None seen (None Seen) #/HPF Urine Bacteria Moderate A (NONE SEEN) #/HPF Urine Casts Seen A (NONE SEEN) #/LPF Hyaline Casts Many Urine Mucus Large A (NONE SEEN) Ur Culture Indicated? Yes Ethanol Quant 59 mg/dL Imaging Data Chest x-ray: Attestation: I have reviewed the pertinent imaging results. Radiologist's impression: ITS Impressions Abdomen/Pelvis CT 01/08/24 16:34 IMPRESSION: Wall thickening and mucosal enhancement of the terminal ileum and distal ileum with spanning of 16 cm. Mucosal enhancement of the sigmoid and rectum. Aforementioned findings representing infectious enteritis and colitis or active inflammatory bowel disease. Correlation with patient's history is recommended. Electronically authenticated by: [employer] Date: 01/08/2024 18:21 Chest X-Ray 01/08/24 16:34 Impression: No radiographic evidence of acute cardiopulmonary process. Electronically authenticated by: [employer] Date: 01/08/2024 18:22 ECG Data Attestation: I personally reviewed and interpreted this ECG as follows: (Normal sinus rhythm at a rate of 82, no acute ST elevation, No ectopy.EKG reviewed by attending physician) Discharge Plan Discharge Chief Complaint: Nausea/Vomiting/Diarrhea Patient Disposition: Admitted As Inpatient Time of Disposition Decision: 18:36 Prescriptions / Home Meds: No Action benztropine 1 mg tablet 1 mg PO DAILY escitalopram oxalate 20 mg tablet 20 mg PO DAILY cholecalciferol (vitamin D3) 25 mcg (1,000 unit) tablet 25 mcg PO DAILY quetiapine 100 mg tablet 100 mg PO QPM trazodone 50 mg tablet 50 mg PO QPM Print Language: Faroese Referrals: Ly Recio NP [Primary Care Provider] - 1 week
--- NOTE | 2024-01-08 16:34 | CT_ITS ---
[address] [address] Patient Name: RODOLFO ENGLISH MRN: [id number] date: 1970 Sex: M Assigned Patient Location: ER Current Patient Location: Accession/Order Number: [id number] Exam Date: 01/08/2024 16:58 Report Date: 01/08/2024 18:21 At the request of: SANTIAGO OCHOA Procedure: CT abdomen pelvis w con EXAM: CT abdomen pelvis w con HISTORY: Abdominal pain, diarrhea COMPARISON: 03/10/2023 TECHNIQUE: Axial CT imaging was performed through the abdomen and pelvis with intravenous contrast. Multiplanar reformats were performed. Dose reduction techniques were achieved by using automated exposure control and/or adjustment of mA and/or kV according to patient size and/or use of iterative reconstruction technique. FINDINGS: Lung bases: Lung bases are clear. No pleural effusion. GI upper: Unremarkable. Liver: Normal size and contour. Gallbladder: No significant abnormality. No cholelithiasis. Biliary system: No intra or extrahepatic biliary ductal dilatation. Spleen: Normal size. Pancreas: Unremarkable. Redemonstration of calcifications of the pancreatic tail. Adrenal glands: Normal adrenal glands. Kidneys/ureters: Normal contours. No hydronephrosis. No nephrolithiasis or ureterolithiasis. Vessels: No aneurysm. Lymph Nodes: No lymphadenopathy. Small bowel: Circumferential wall thickening and mucosal enhancement of the terminal ileum and distal ileum with spanning of 16 cm. Colon: No dilatation. Mucosal enhancement of the sigmoid and rectum. Colonic diverticulosis without evidence of acute diverticulitis. Appendix: No findings of appendicitis. Peritoneal cavity: No free fluid or pneumoperitoneum. Lower : Unremarkable. Bones: No acute bony abnormality. Soft tissues: No acute finding. Additional findings: None. CT/CT abdomen pelvis w con IMPRESSION: Wall thickening and mucosal enhancement of the terminal ileum and distal ileum with spanning of 16 cm. Mucosal enhancement of the sigmoid and rectum. Aforementioned findings representing infectious enteritis and colitis or active inflammatory bowel disease. Correlation with patient's history is recommended. Electronically authenticated by: GIRISH SUÁREZ Date: 01/08/2024 18:21
--- NOTE | 2024-01-08 16:34 | XR_ITS ---
The [address] [address] Patient Name: RODOLFO ENGLISH MRN: [id number] date: 1970 Sex: M Assigned Patient Location: ER Current Patient Location: ER Accession/Order Number: [id number] Exam Date: 01/08/2024 16:58 Report Date: 01/08/2024 18:22 At the request of: SANTIAGO OCHOA Procedure: XR chest 1V EXAM: XR chest 1V HISTORY: Weakness COMPARISON: None. TECHNIQUE: Chest X-ray AP, 1 view FINDINGS: Support devices: None. Lungs/pleura: No consolidation, effusion, or pneumothorax. Heart and mediastinum: Normal contours. Bones: No acute abnormality identified. XR/XR chest 1V Impression: No radiographic evidence of acute cardiopulmonary process. Electronically authenticated by: GIRISH SUÁREZ Date: 01/08/2024 18:22
[2024-01-08 16:40] LABS: Bilirubin Urine NEGATIVE (NEGATIVE); Blood Urine NEGATIVE (NEGATIVE); Clarity Urine CLEAR (CLEAR); Color Urine YELLOW (YELLOW); Glucose Urine UA NEGATIVE (NEGATIVE); Ketones Urine TRACE mg/dL (NEGATIVE); Leukocyte Esterase Urine NEGATIVE (NEGATIVE); Nitrite Urine NEGATIVE (NEGATIVE); Protein Urine 30 mg/dL (NEG/TRACE); Specific Gravity Urine 1.025 (1.005-1.025); Urobilinogen Urine 0.2 EU/dL (0.2-1.0)
[2024-01-08 16:57] LABS: Urine Microscopic Indicated YES
[2024-01-08 17:00] LABS: Bacteria Urine MODERATE #/HPF (NONE SEEN); Cast Seen? SEEN #/LPF (NONE SEEN); Crystals Seen? None Seen #/HPF (None Seen); Mucus Urine LARGE (NONE SEEN); RBC Urine NONE SEEN #/HPF (0-2); Squamous Epithelial Cell Urine FEW #/LPF (NONE/RARE); Transitional Epi Cells Urine RARE #/LPF (NONE SEEN); WBC Urine 0-2 #/HPF (NONE SEEN)
[2024-01-08 17:01] LABS: Hyaline Casts Urine MANY; Urine Culture Indicated YES
[2024-01-08 17:04] LABS: Hematocrit 47.3 % (42.0-54.0); Hemoglobin 16.9 g/dL (14.0-18.0); Mean Corpuscular HGB Conc 35.7 g/dL (29.9-35.2); Mean Corpuscular Hemoglobin 28.1 pg (25.9-34.0); Mean Corpuscular Volume 78.7 fL (80.0-94.0); Mean Platelet Volume 10.7 fL (9.5-13.5); Platelet Count 468 10^3/uL (150-450); Red Blood Count 6.01 10^6/uL (4.70-6.10); Red Cell Distribution Width 13.2 % (11.0-15.0); White Blood Count 12.5 10^3/uL (4.0-11.0)
[2024-01-08 17:14] LABS: Ethanol 59 mg/dL
[2024-01-08 17:27] LABS: Alanine Aminotransferase 30 U/L (16-63); Albumin Globulin Ratio 0.6; Albumin Level 3.2 g/dL (3.4-5.0); Alkaline Phosphatase 107 U/L (46-116); Anion Gap 18.7; Aspartate Amino Transferase 17 U/L (15-37); BUN Creatinine Ratio 25.4; Bilirubin Total 0.5 mg/dL (0.2-1.0); Calcium 9.5 mg/dL (8.5-10.1); Carbon Dioxide 21.2 mmol/L (21.0-32.0); Chloride 86 mmol/L (98-107); Estimated GFR (African America >60 (>=60); Estimated GFR (Non-African Ame 56 (>=60); Globulin 5.2 g/dL; Glucose 175 mg/dL (74-106); Potassium 3.9 mmol/L (3.5-5.1); Total Protein 8.4 g/dL (6.4-8.2); Troponin I High Sensitivity <4.0 pg/mL (4.0-76.1)
[2024-01-08 17:28] LABS: INR 1.03; Prothrombin Time 10.9 sec (9.0-11.6)
[2024-01-08 17:29] LABS: Lactate/Lactic Acid 3.4 mmol/L (0.4-2.0); Sodium 122 mmol/L (136-145)
[2024-01-08 17:34] LABS: Band Neutrophils Absolute 0.5 10^3/uL (0.0-0.3); Lymphocytes Absolute Manual 1.87 10^3/uL (1.20-3.80); Monocytes Absolute Manual 2.62 10^3/uL (0.30-0.80)
[2024-01-08] MEDS: HYOSCYAMINE SULFATE 0.125 MG TAB.SUBL SL (17:49)
[2024-01-08] MEDS: ONDANSETRON PF 4 MG/2 ML VIAL IV (17:49)
[2024-01-08] MEDS: 0.9 % SODIUM CHLORIDE 1,000 ML 999 ML IV (17:49)
[2024-01-08 18:59] LABS: Erythrocyte Sedimentation Rate 95 mm/hr (<=20)
[2024-01-08 19:02] LABS: Amphetamine Screen Urine NEGATIVE (NEGATIVE); Barbiturates Screen Urine NEGATIVE (NEGATIVE); Benzodiazepines Screen Urine NEGATIVE (NEGATIVE); Buprenorphine Screen Urine NEGATIVE (NEGATIVE); Cannabinoid Screen Urine POSITIVE (NEGATIVE); Cocaine Screen Urine NEGATIVE (NEGATIVE); Methadone Screen Urine NEGATIVE (NEGATIVE); Methamphetamines Screen Urine NEGATIVE (NEGATIVE); Opiate Screen Urine NEGATIVE (NEGATIVE); Oxycodone Screen Urine NEGATIVE (NEGATIVE); Phencyclidine Screen Urine NEGATIVE (NEGATIVE); Tricyclic Antidepressant Urine NEGATIVE (NEGATIVE)
[2024-01-08 19:06] LABS: C Reactive Protein 8.62 mg/dL (<=0.50)
[2024-01-08 19:08] LABS: Magnesium 2.7 mg/dL (1.8-2.4)
[2024-01-08] MEDS: DEXTROSE 5%-LACTATED RINGERS 1,000 ML 150 ML IV (19:40)
[2024-01-08] MEDS: LORAZEPAM 2 MG/ML VIAL IV (19:41)
[2024-01-08] MEDS: MORPHINE SULFATE 2 MG/ML SYRINGE IV (19:41)
[2024-01-08 20:39] LABS: Glucometer 152 mg/dL (74-106)
[2024-01-08] MEDS: ENOXAPARIN SODIUM 40 MG/0.4 ML SYRINGE SUBQ (21:10)
[2024-01-08 21:54] LABS: Lactate/Lactic Acid 1.2 mmol/L (0.4-2.0)
[2024-01-08] MEDS: NICOTINE 21 MG PATCH.TD24 TD (21:56)
[2024-01-08] MEDS: QUETIAPINE FUMARATE 100 MG TABLET PO (21:57)
[2024-01-08] MEDS: TRAZODONE HCL 50 MG TABLET PO (21:57)
[2024-01-08] MEDS: DIAZEPAM 10 MG/2 ML SYRINGE 5 MG IV (23:48)
[2024-01-09] VITALS (115 sets, daily range): BP systolic 117–141; BP diastolic 65–79; PULSE 57–104; TEMP 36.3–36.8; O2SAT 70–100; BMI 21.0
[2024-01-09] MEDS: DEXTROSE 5%-LACTATED RINGERS 1,000 ML 150 ML IV (01:45)
[2024-01-09 05:19] LABS: Basophils Absolute Auto 0.1 10^3/uL (0.0-0.1); Basophils Percent Auto 0.8 % (0.2-2.0); Eosinophils Absolute Auto 0.1 10^3/uL (0.0-0.7); Eosinophils Percent Auto 0.5 % (0.9-7.0); Hematocrit 39.4 % (42.0-54.0); Hemoglobin 13.9 g/dL (14.0-18.0); Immature Granulocytes Abs Auto 0.31 10^3/uL (0.00-0.03); Immature Granulocytes Pct Auto 3.2 % (0.0-0.5); Lymphocytes Absolute Auto 1.5 10^3/uL (1.2-3.8); Lymphocytes Percent Auto 15.1 % (20.5-60.0); Mean Corpuscular HGB Conc 35.3 g/dL (29.9-35.2); Mean Corpuscular Hemoglobin 27.8 pg (25.9-34.0); Mean Corpuscular Volume 78.8 fL (80.0-94.0); Mean Platelet Volume 10.4 fL (9.5-13.5); Monocytes Absolute Auto 2.4 10^3/uL (0.3-0.8); Monocytes Percent Auto 24.6 % (1.7-12.0); Neutrophils Absolute Auto 5.4 10^3/uL (1.4-6.5); Neutrophils Percent Auto 55.8 % (43.0-75.0); Platelet Count 421 10^3/uL (150-450); Red Cell Distribution Width 13.2 % (11.0-15.0); White Blood Count 9.6 10^3/uL (4.0-11.0)
[2024-01-09 05:53] LABS: INR 1.06; Partial Thromboplastin Time 29.7 sec (22.3-36.2); Prothrombin Time 11.2 sec (9.0-11.6)
[2024-01-09 06:28] LABS: Alanine Aminotransferase 19 U/L (16-63); Albumin Globulin Ratio 0.6; Albumin Level 2.3 g/dL (3.4-5.0); Alkaline Phosphatase 83 U/L (46-116); Anion Gap 9.3; Aspartate Amino Transferase 11 U/L (15-37); BUN Creatinine Ratio 19.8; Bilirubin Total 0.5 mg/dL (0.2-1.0); Calcium 8.7 mg/dL (8.5-10.1); Carbon Dioxide 26.2 mmol/L (21.0-32.0); Chloride 95 mmol/L (98-107); Cholesterol 136 mg/dL (<=200); Estimated GFR (African America >60 (>=60); Estimated GFR (Non-African Ame >60 (>=60); Glucose 171 mg/dL (74-106); HDL Cholesterol 34 mg/dL (40-60); Magnesium 2.1 mg/dL (1.8-2.4); Phosphorus 3.6 mg/dL (2.6-4.7); Potassium 3.5 mmol/L (3.5-5.1); Sodium 127 mmol/L (136-145); Total Protein 6.3 g/dL (6.4-8.2); Triglycerides 110 mg/dL (<=150)
[2024-01-09] MEDS: ONDANSETRON PF 4 MG/2 ML VIAL IV (06:30)
[2024-01-09] MEDS: 0.9 % SODIUM CHLORIDE 1,000 ML 125 ML IV (08:11)
[2024-01-09] MEDS: ESCITALOPRAM 10 MG TABLET 20 MG PO (08:12)
[2024-01-09] MEDS: CHOLECALCIFEROL (VITAMIN D3) 25 MCG/1,000 UNITS TABLET PO (08:12)
[2024-01-09] MEDS: CIPROFLOXACIN IN 5 % DEXTROSE 400 MG/200 ML PIGGYBACK 200 MG IV ×2 (08:17→19:34)
[2024-01-09 09:01] LABS: C. Difficile PCR NEGATIVE (NEGATIVE)
[2024-01-09] MEDS: POTASSIUM CHLORIDE 40 MEQ in 0.9 % SODIUM CHLORIDE 250 ML 67.5 MEQ IV (09:17)
[2024-01-09] MEDS: METRONIDAZOLE/SODIUM CHLORIDE 500 MG/100 ML PREMIX 100 MG IV ×2 (09:17→16:16)
--- NOTE | 2024-01-09 11:11 | P.HP_ITS ---
<Statement entered by Andrea Bansal MD - 01/09/24 18:56> Patient seen and examined, agree with assessment and plan below. Presented with nausea, vomiting and diarrhea. Found hyponatremia and ileitis. On cipro and flagyl. Improved overnight but sodium remains low. Start clear liquids and advance as tolerated. Monitor for alcohol withdrawal. Diagnosis: 1. Ileitis 2. Hyponatremia 3. Dehydration 4. Vomiting and diarrhea 5. Alcohol abuse 6. DM2 7. Generalized weakness HPI H&P: HPI History of Present Illness Chief complaint: GENERAL WEAKNESS Narrative: 01/09/24 0840 This is a 53-year-old male patient with a past medical history as outlined below including depression and chronic EtOH abuse; who presented to the ED yesterday afternoon complaining of 6-day course of abdominal pain with nausea, vomiting, and diarrhea. He notes abrupt onset of diarrhea overnight on 01 January. He reports 2 or more episodes of diarrhea daily since that time and 4 episodes of vomiting. He complains of diffuse abdominal pain but primarily in the epigastric/upper quadrant areas. He notes increasing weakness over the last week becoming quite severe by the time he reported to the ED. He also notes dysuria with urination for about a week. He denies any sick contacts. He denies black or bloody stools. He reports subjective fever and chills over the last week. He admits to daily drinking of 3 tall boys (equivalent to 6 beers) daily, although his intake was significantly reduced over the last week due to nausea and vomiting. His last drink was on 01/08/2024 in the morning. Workup in the ED revealed significant hyponatremia (122), leukocytosis (12.5), dehydration (BUN 34, CR 1.34, GFR 56) lactic acidosis (3.4), and elevated inflammatory markers (ESR 95, CRP 8.62). A UA was positive for infection and a UDS revealed cannabinoids only. EtOH level did not reveal intoxication (59). Lipase levels mildly elevated (201), but acute pancreatitis was not confirmed on imaging. Chest x-ray was unremarkable. CT of the abdomen pelvis revealed infectious ileitis/enteritis versus inflammatory bowel disease (infectious ileitis is clinically suspected). The patient was admitted as an inpatient to the hospitalist service last night for the above conditions. At the time of my exam the patient is resting comfortably in bed. He is awake and alert and oriented x 3 and answering questions appropriately. Of note, nursing does report the patient was hallucinating overnight and there is some clinical concern that this represents altered mental status from hyponatremia versus less likely alcohol withdrawal. There is no evidence of hallucination or disorientation during my exam. The patient continues to complain of diffuse abdominal pain. His sodium is slowly correcting at an appropriate rate (less than 8 mEq/L in 24 hours). We will continue IV fluids and attempt to advance the patient's diet and monitor his response. He will be initiated on antibiotics for suspected infectious ileitis as well as a UTI. Opioid HPI Opioid Management Most Recent Pain and Opioid Data: Last Pain Scale 5 01/08/24 20:00 Last Pain Assessment 01/09/24 11:00 Last ORT Total Score 15 01/08/24 19:33 Last ORT Risk Category High Risk 01/08/24 19:33 Ur Phencyclidine Scrn Negative (NEGATIVE) 01/08/24 18:20 Review of Systems ROS Status of ROS 10 or more systems reviewed and unremark able except as noted in history and below [facility] Medical History (Updated 01/09/24 @ 11:30 by Yola Hall NP) Diabetes ?E11.9 - Type 2 diabetes mellitus without complications (ICD-10) Alcohol abuse ?F10.10 - Alcohol abuse, uncomplicated (ICD-10) Polysubstance abuse ?F19.10 - Other psychoactive substance abuse, uncomplicated (ICD-10) Major depression ?F32.9 - Major depressive disorder, single episode, unspecified (ICD-10) Substance abuse ?F19.10 - Other psychoactive substance abuse, uncomplicated (ICD-10) Social History Smoking status: Heavy tobacco smoker Highest level of school completed/degree received: 11th grade Meds Home Medications and Allergies Home Medications ?Medication ?Instructions ?Recorded ?Confirmed ?Type escitalopram oxalate 20 mg tablet 20 mg PO DAILY 03/10/23 01/08/24 History cholecalciferol (vitamin D3) 25 25 mcg PO DAILY 01/08/24 01/08/24 History mcg (1,000 unit) tablet quetiapine 100 mg tablet 100 mg PO QPM 01/08/24 01/08/24 History trazodone 50 mg tablet 50 mg PO QPM 01/08/24 01/08/24 History Allergies Allergy/AdvReac Type Severity Reaction Status Date / Time No Known Drug Allergies Allergy Verified 03/10/23 20:38 Exam Constitutional Vital Signs, click to edit/add: Last Vital Signs Temp 97.5 F L 01/09/24 06:00 Pulse 63 01/09/24 10:00 Resp 10 L 01/09/24 08:20 BP 129/77 01/09/24 08:13 Pulse Ox 100 01/09/24 06:00 O2 Del Method Room Air 01/09/24 06:00 Common normals: no apparent distress, oriented x3, alert and well nourished General appearance: cooperative Orientation/consciousness: Yes awake HENMT Common normals: normocephalic, head/scalp atraumatic, hearing grossly normal bilaterally, external nose normal and moist oral mucous membranes Eye Common normals: PERRL, EOMs intact bilaterally, conjunctivae normal and no scleral icterus Alignment: alignment normal Eyelid: eyelids normal Neck & C-Spine Common normals: full ROM, supple and no JVD Chest Common normals: inspection of chest normal Chest: symmetrical chest wall rise Respiratory Common normals: normal respiratory effort, no retractions, no use of accessory muscles and clear to auscultation bilaterally Effort & inspection: able to speak in complete sentences Cardio Common normals: no JVD, regular rate, regular rhythm, S1 normal heart sound, S2 normal heart sound, no gallops, no clicks, no murmurs, no rub and peripheral pulses 2+ throughout GI Common normals: Normal to inspection, nondistended, normoactive bowel sounds present, soft to palpation, no hepatosplenomegaly, no masses and no bruits Palpation: tender (BUQ, RLQ, greatest at epigastric area), guarding and rebound tenderness present (Mild, RLQ) Bladder/kidney exam: bladder normal to palpation Back & Pelvis Common normals: thoracic and lumbar spine normal to inspection Extremity Common normals: normal capillary refill and no pedal edema General: normal exam except as noted; no clubbing and no cyanosis Neuro [place] Coma Scale: GCS not evaluated Common normals: CN's II-XII intact bilaterally, moves all extremities, no focal motor deficits and no sensory deficits noted Speech: speech normal Motor exam: strength 5/5 throughout Psych Common normals: mental status grossly normal, thought process normal, affect normal and activity/motor behavior normal Results Labs Labs: Short CBC 01/08/24 01/09/24 Range/Units 16:44 05:00 WBC 12.5 H 9.6 (4.0-11.0) 10^3/uL Hgb 16.9 13.9 L (14.0-18.0) g/dL Hct 47.3 39.4 L (42.0-54.0) % Plt Count 468 H 421 (150-450) 10^3/uL BMP 01/08/24 01/09/24 16:44 05:00 Sodium 122 L* 127 L Potassium 3.9 3.5 Chloride 86 L 95 L Carbon Dioxide 21.2 26.2 BUN 34.0 H 22.0 H Creatinine 1.34 H 1.11 Glucose 175 H 171 H Calcium 9.5 8.7 Liver Function 01/08/24 01/09/24 Range/Units 16:44 05:00 Total Bilirubin 0.5 0.5 (0.2-1.0) mg/dL AST 17 11 L (15-37) U/L ALT 30 19 (16-63) U/L Alkaline Phosphatase 107 83 (46-116) U/L Albumin 3.2 L 2.3 L (3.4-5.0) g/dL Urine 01/08/24 Range/Units 16:27 Urine Color Yellow (YELLOW) Urine Clarity Clear (CLEAR) Urine pH 6.0 (5.0-9.0) Ur Specific [place] 1.025 (1.005-1.025) Urine Protein 30 A (NEG/TRACE) mg/dL Urine Glucose (UA) Negative (NEGATIVE) mg/dL Pulse Oximetry Attestation: I have reviewed the pertinent pulse oximetry results. Imaging Chest x-ray: Attestation: I have reviewed the pertinent imaging results. Radiologist's impression: Impression: No radiographic evidence of acute cardiopulmonary process. CT scan - abdomen: Attestation: I have reviewed the pertinent imaging results. Radiologist's impression: IMPRESSION: Wall thickening and mucosal enhancement of the terminal ileum and distal ileum with spanning of 16 cm. Mucosal enhancement of the sigmoid and rectum. Aforementioned findings representing infectious enteritis and colitis or active inflammatory bowel disease. Correlation with patient's history is recommended. Assessment and Plan Assessment and Plan (1) Acute hyponatremia: Assessment and Plan: Acute * Adm inpatient * We anticipate greater than a 2 midnight stay for medically necessary hospital care including IVF fluids, frequent monitoring of labs, IV antibiotics, and close nursing monitoring of mental/neurologic status * Na 122 on arrival to the ED * Symptomatic w/ profound weakness and AMS * Improving - 127 on AM labs today * Slowly correct (goal: 8 mEq/L/24hr) * NS at 125/hr * Repeat BMP at 1400 to ensure Na is not correcting too rapidly to avoid osmotic demyelination * CMP daily (2) Ileitis: Assessment and Plan: Acute * Confirmed on CT A/P imaging * Suspect infectious etiology over IBD based on clinical course and history * N/V/D reported x 1 week * Stool sample obtained in the ED * C-diff negative * Giardia/Cryptosporidium/Ova & Parasite studies pending * Stool culture pending * IVPB Cipro BID and Flagyl q8h * Floranex BID for c-diff prophylaxis * No clinical concern for sepsis at this time - monitor VS and mentation closely * Clear liquid diet, if tolerating well, may advance as tolerated (3) Dehydration: Assessment and Plan: Acute * 2/2 N/V/D x 1 week * IVF as above * CMP daily (4) Lactic acidosis: Assessment and Plan: Acute * L.A. 3.4 in ED * Resolved to 1.2 on repeat lab after IVF bolus * Likely 2/2 dehydration. No clinical suspicion of sepsis at this time (5) Generalized weakness: Assessment and Plan: Acute * 2/2 to hyponatremia and dehydration * Correct as noted above * PT/OT consults (6) Diabetes: Assessment and Plan: Chronic * Diet controlled at home * Hyperglycemic in the ED * Pt has been too weak to check his BS over the last few days * [facility] glucometer checks * Med SSI for glucose correction (7) Alcohol abuse: Assessment and Plan: Chronic * Self reported hx of 6 beers daily (3 tall boys), but recently reduced during acute illness * EtOH cessation advised * CIWA protocol w/ PRN ativan per CIWA scale/protocol * Seizure precautions (8) Major depression: Assessment and Plan: Chronic * Continue home Lexapro and Seroquel
--- NOTE | 2024-01-09 12:04 | CM.NOTE ---
01/09/24 09:[address] Bansal. Discussed labs, treatment plan, to continue IVFs, Add Antibiotic, advance diet as tolerated. Byron verbalized understanding. No discharge planned for today.
--- NOTE | 2024-01-09 12:23 | SWNOTE1 ---
SW met with pt to discuss dc needs and pt's alcohol intake. Pt lives at home alone. SW did ask pt about his drinking. He voiced he has 2-3 tall boys per day. He stated he has been drinking for nearly 40 years. Pt voiced he was going to stop as he has not been feeling well. SW expressed to pt that drinking can affect his body in many ways and advised pt to try to stop drinking. SW offered a list of AA meetins within the area and inpt/outpt resources for pt to assist with quiting. Pt voiced he goes to a place in [place] for AA meetings and he also goes to [facility] in [place]. Pt stated his next apt with [facility] is 01/19/24. At this time pt does not feel he needs any additional resources. Pt's plan is to quit drinking. Pt voiced he has good support from family and friends.
[2024-01-09] MEDS: L. ACIDOPHILUS/L.BULGARICUS 1 PACKET GRAN.PACK PO ×2 (13:07→21:13)
[2024-01-09 14:18] LABS: Anion Gap 12.4; BUN Creatinine Ratio 14.3; Calcium 8.3 mg/dL (8.5-10.1); Carbon Dioxide 22.2 mmol/L (21.0-32.0); Chloride 97 mmol/L (98-107); Estimated GFR (African America >60 (>=60); Estimated GFR (Non-African Ame >60 (>=60); Glucose 193 mg/dL (74-106); Potassium 4.6 mmol/L (3.5-5.1); Sodium 127 mmol/L (136-145)
[2024-01-09] MEDS: 0.9 % SODIUM CHLORIDE 1,000 ML 150 ML IV (16:16)
[2024-01-09] MEDS: INSULIN ASPART 300 UNIT/3 ML PEN SUBQ ×2 (16:21→21:16)
[2024-01-09 16:23] LABS: Glucometer 186 mg/dL (74-106)
[2024-01-09] MEDS: ENOXAPARIN SODIUM 40 MG/0.4 ML SYRINGE SUBQ (21:13)
[2024-01-09] MEDS: QUETIAPINE FUMARATE 100 MG TABLET PO (21:13)
[2024-01-09] MEDS: DIAZEPAM 10 MG/2 ML SYRINGE 5 MG IV (21:13)
[2024-01-09 21:17] LABS: Glucometer 171 mg/dL (74-106)
[2024-01-10] VITALS (15 sets, daily range): BP systolic 155; BP diastolic 82; PULSE 58–65; O2SAT 98
[2024-01-10] MEDS: 0.9 % SODIUM CHLORIDE 1,000 ML 150 ML IV ×2 (01:51→08:32)
[2024-01-10] MEDS: METRONIDAZOLE/SODIUM CHLORIDE 500 MG/100 ML PREMIX 100 MG IV ×2 (01:51→08:32)
[2024-01-10 05:55] LABS: Basophils Absolute Auto 0.1 10^3/uL (0.0-0.1); Basophils Percent Auto 0.8 % (0.2-2.0); Eosinophils Absolute Auto 0.1 10^3/uL (0.0-0.7); Eosinophils Percent Auto 0.7 % (0.9-7.0); Hematocrit 37.4 % (42.0-54.0); Immature Granulocytes Abs Auto 0.41 10^3/uL (0.00-0.03); Immature Granulocytes Pct Auto 4.5 % (0.0-0.5); Lymphocytes Absolute Auto 1.8 10^3/uL (1.2-3.8); Mean Corpuscular HGB Conc 34.8 g/dL (29.9-35.2); Mean Corpuscular Hemoglobin 27.5 pg (25.9-34.0); Mean Corpuscular Volume 79.2 fL (80.0-94.0); Mean Platelet Volume 9.6 fL (9.5-13.5); Monocytes Percent Auto 21.7 % (1.7-12.0); Neutrophils Absolute Auto 4.8 10^3/uL (1.4-6.5); Neutrophils Percent Auto 52.3 % (43.0-75.0); Platelet Count 455 10^3/uL (150-450); Red Blood Count 4.72 10^6/uL (4.70-6.10); Red Cell Distribution Width 13.4 % (11.0-15.0); White Blood Count 9.1 10^3/uL (4.0-11.0)
[2024-01-10 06:03] LABS: Erythrocyte Sedimentation Rate 55 mm/hr (<=20)
[2024-01-10 06:10] LABS: Alanine Aminotransferase 16 U/L (16-63); Albumin Globulin Ratio 0.6; Albumin Level 2.2 g/dL (3.4-5.0); Alkaline Phosphatase 76 U/L (46-116); Anion Gap 11.6; Aspartate Amino Transferase 9 U/L (15-37); BUN Creatinine Ratio 10.8; Bilirubin Total 0.3 mg/dL (0.2-1.0); C Reactive Protein 2.54 mg/dL (<=0.50); Calcium 8.7 mg/dL (8.5-10.1); Carbon Dioxide 21.2 mmol/L (21.0-32.0); Chloride 103 mmol/L (98-107); Estimated GFR (African America >60 (>=60); Estimated GFR (Non-African Ame >60 (>=60); Globulin 3.8 g/dL; Glucose 137 mg/dL (74-106); Potassium 3.8 mmol/L (3.5-5.1); Sodium 132 mmol/L (136-145)
[2024-01-10] MEDS: ESCITALOPRAM 10 MG TABLET 20 MG PO (08:31)
[2024-01-10] MEDS: CHOLECALCIFEROL (VITAMIN D3) 25 MCG/1,000 UNITS TABLET PO (08:31)
[2024-01-10] MEDS: CIPROFLOXACIN IN 5 % DEXTROSE 400 MG/200 ML PIGGYBACK 200 MG IV (08:31)
[2024-01-10] MEDS: L. ACIDOPHILUS/L.BULGARICUS 1 PACKET GRAN.PACK PO (08:31)
--- NOTE | 2024-01-10 09:08 | P.DS_ITS ---
<Statement entered by Andrea Bansal MD - 01/10/24 17:10> Patient seen and examined, agree with assessment and plan below. Presented with nausea, vomiting and diarrhea. Found hyponatremia and ileitis. Improved with IV fluids. WBC improved with cipro and flagyl. Diarrhea improved and mild pain. Normla PO. Sodium improved. Discharged home on antibiotics. Follow up with PCP in 1-2 weeks. Diagnosis: 1. Ileitis 2. Hyponatremia 3. Dehydration 4. Vomiting and diarrhea 5. Alcohol abuse 6. DM2 7. Generalized weakness DS: Providers Provider Date of admission: 01/08/24 19:27 Primary care physician: Ly Recio NP Consults: 01/08/24 Consult to Dietitian Routine Reason for consultation: n/v/d/ not eating 6 days Has provider been notified: No 01/09/24 07:35 Physical Therapy Eval and Treat Routine Reason for consultation: Weakness, Self-care deficit Has provider been notified: No 01/09/24 07:36 Occupational Therapy Eval and Treat Routine Reason for consultation: Weakness, Self-care deficit Has provider been notified: No Discharging clinician: Yola Hall DS: Diagnosis Discharge Diagnosis (1) Acute hyponatremia: (2) Ileitis: (3) Dehydration: (4) Lactic acidosis: (5) Generalized weakness: (6) Diabetes: (7) Alcohol abuse: (8) Major depression: DS: Summary Hospital Course Hospital Course: The patient was admitted with acute hyponatremia, ileitis with nausea and vomiting, and dehydration with associated lactic acidosis. Clostridium difficile was ruled out as source of ileitis/colitis. He was treated with NS IV fluids and IV Cipro and Flagyl. His sodium level slowly improved throughout his stay and his hyponatremia resolved. The patient was still experiencing some diarrhea at the time of discharge, but the frequency and volume had significantly decreased. His lactic acidosis also resolved. The patient was monitored closely for alcohol withdrawal due to his daily alcohol use history and no evidence of acute alcohol withdrawal was noted during his stay. As the patient is feeling much improved, he is being discharged home in stable condition with prescriptions to continue Cipro and Flagyl to complete a 5-day course of care. He should follow-up with his PCP within 5 to 7 days. Time Spent with Patient Time attestation: Total time spent providing and/or coordinating discharge services: Time spent: greater than 30 minutes Specific discharge activities: Physical exam, discussion of discharge plan, questions answered. Exam Constitutional Vital Signs, click to edit/add: Last Vital Signs Temp 98.2 F 01/09/24 19:39 Pulse 58 L 01/10/24 06:20 Resp 16 01/10/24 06:20 BP 155/82 H 01/10/24 06:35 Pulse Ox 98 01/10/24 05:10 O2 Del Method Room Air 01/10/24 05:10 Common normals: no apparent distress, oriented x3 and alert General appearance: cooperative Orientation/consciousness: Yes awake HENMT Common normals: normocephalic and head/scalp atraumatic Eye Common normals: PERRL, EOMs intact bilaterally, conjunctivae normal and no scleral icterus Neck & C-Spine Common normals: no JVD Respiratory Common normals: normal respiratory effort, no use of accessory muscles and clear to auscultation bilaterally Effort & inspection: able to speak in complete sentences and symmetric chest movement Cardio Common normals: no JVD, regular rate, regular rhythm, S1 normal heart sound, S2 normal heart sound, no murmurs and peripheral pulses 2+ throughout GI Common normals: Normal to inspection, nondistended, normoactive bowel sounds present and soft to palpation Palpation: tender (mild epigastric, much improved) Bladder/kidney exam: bladder normal to palpation Extremity Common normals: normal to inspection, full ROM, normal capillary refill and no pedal edema General: no clubbing and no cyanosis Neuro Common normals: moves all extremities, no focal motor deficits and no sensory deficits noted Speech: speech normal Psych Common normals: mental status grossly normal and activity/motor behavior normal DS: Data Data Completed and Pending Labs on day of discharge: Labs from last 24 hours 01/10/24 01/09/24 01/09/24 05:44 21:15 16:19 WBC 9.1 RBC 4.72 Hgb 13.0 L Hct 37.4 L MCV 79.2 L MCH 27.5 MCHC 34.8 RDW 13.4 Plt Count 455 H MPV 9.6 Neut % (Auto) 52.3 Lymph % (Auto) 20.0 L [place] % (Auto) 21.7 H Eos % (Auto) 0.7 L Baso % (Auto) 0.8 Neut # (Auto) 4.8 Lymph # (Auto) 1.8 [place] # (Auto) 2.0 H Eos # (Auto) 0.1 Baso # (Auto) 0.1 Abs Immat Gran (auto) 0.41 H Imm/Tot Granulo (auto) 4.5 H ESR 55 H Sodium 132 L Potassium 3.8 Chloride 103 Carbon Dioxide 21.2 Anion Gap 11.6 BUN 8.0 Creatinine 0.74 Est GFR ( Amer) >60 Est GFR (Non-Af Amer) >60 BUN/Creatinine Ratio 10.8 Glucose 137 H Calcium 8.7 Total Bilirubin 0.3 AST 9 L ALT 16 Alkaline Phosphatase 76 C-Reactive Protein 2.54 H Total Protein 6.0 L Albumin 2.2 L Globulin 3.8 Albumin/Globulin Ratio 0.6 POC Glucose 171 H 186 H 01/09/24 14:01 WBC RBC Hgb Hct MCV MCH MCHC RDW Plt Count MPV Neut % (Auto) Lymph % (Auto) [place] % (Auto) Eos % (Auto) Baso % (Auto) Neut # (Auto) Lymph # (Auto) [place] # (Auto) Eos # (Auto) Baso # (Auto) Abs Immat Gran (auto) Imm/Tot Granulo (auto) ESR Sodium 127 L Potassium 4.6 Chloride 97 L Carbon Dioxide 22.2 Anion Gap 12.4 BUN 14.0 Creatinine 0.98 Est GFR ( Amer) >60 Est GFR (Non-Af Amer) >60 BUN/Creatinine Ratio 14.3 Glucose 193 H Calcium 8.3 L Total Bilirubin AST ALT Alkaline Phosphatase C-Reactive Protein Total Protein Albumin Globulin Albumin/Globulin Ratio POC Glucose Discharge Plan Discharge Disposition: Home, Self-Care Condition: Good Discharge Medications: New ciprofloxacin HCl [Cipro] 500 mg tablet 500 mg PO BID 4 Days Qty: 7 0RF Rx Instructions: 1st dose 8pm on 01/10/24 metronidazole 500 mg tablet 500 mg PO Q8H 3 Days Qty: 11 0RF Rx Instructions: 1st dose today at 2pm. Continued escitalopram oxalate 20 mg tablet 20 mg PO DAILY cholecalciferol (vitamin D3) 25 mcg (1,000 unit) tablet 25 mcg PO DAILY quetiapine 100 mg tablet 100 mg PO QPM trazodone 50 mg tablet 50 mg PO QPM Activity: resume usual activities as tolerated Diet: advance to your usual diet Print Language: Polish Patient Instructions: Ciprofloxacin (By mouth) (Cipro), Metronidazole (By mouth) (Flagyl, Flagyl 375, Flagyl ER, Likmez), Colitis (ED) Forms: Portal Instructions Follow Up App[facility]ments: [facility] [phone], MondayJanuary 16 at 1:15 pm Discharge Date/Time: 01/10/24 12:44
--- NOTE | 2024-01-10 11:31 | CM.NOTE ---
09:[address]ans[address] Bansal discussed labs and plan for discharge today. Told patient will need to followup with PCP in couple weeks. Byron verbalized understanding. Discharge today on po antibiotics
[2024-01-10 16:09] LABS: Cryptosporidium EIA Negative (Negative); Giardia lamblia Ag, EIA Negative (Negative)
--- NOTE | 2024-01-11 15:32 | CM.DCFOLLOWU ---
1st attempt 01/11/24
--- NOTE | 2024-01-12 13:04 | CM.DCFOLLOWU ---
Person spoke with: patient How are you feeling? well How is your pain? none, starting to eat a little more Did you understand your discharge instructions? yes Do you have any questions about your discharge instructions? no Were you given any prescriptions at discharge? yes Were you able to get your prescriptions filled? No, patient working on this. It cost $40.00 and he did not have that money. Patient is talking with his medicaid provider to get the meds covered. Do you understand how to take your medications as ordered? yes Do you have any questions about your follow up appointment and do you plan to keep your follow up appointment? no questions, follow up reviewed Is there anything else that you would like to discuss? no Questions/Comments/Concerns/Other: none
[2024-01-15 19:07] LABS: Ova + Parasite Exam Final report (.)
== END 2024-01-10 12:44 | disposition home or self-care (01) | DRG 392 ==
LOC: ER 18:46 → MS 19:28 → ICU 21:03
PROVIDERS: Nurse Practitioner; Physician Assistant; Registered Nurse; Admitting Provider Family Medicine; Emergency Provider Student in an Organized Health Care Education/Training Program; PCP Nurse Practitioner; Visit Provider Family Medicine
DX: K52.9 Noninfective gastroenteritis and colitis, unspecified (principal); E87.1 Hypo-osmolality and hyponatremia; E87.20 Acidosis, unspecified; E44.0 Moderate protein-calorie malnutrition; E86.0 Dehydration; R53.1 Weakness; E11.9 Type 2 diabetes mellitus without complications; F10.10 Alcohol abuse, uncomplicated; F32.9 Major depressive disorder, single episode, unspecified; R11.10 Vomiting, unspecified; Z68.21 Body mass index [BMI] 21.0-21.9, adult
CPT/HCPCS: 36415; 71045; 74177; 80048; 80053; 80061; 80307; 80320; 81001; 82948; 83605; 83690; 83735; 84100; 84484; 85007; 85025; 85027; 85610; 85652; 85730; 86140; 87045; 87046; 87086; 87177; 87209; 87427; 87493; 93005; 94761; 96361; 96365; 96366; 96367; 96368; 96372; 96375; 96376; 97161; 97165; 99285; J0744; J1650; J1836; J2060; J2270; J2405; J3360; J3480; Q9967